=== PATIENT | male | born 1955 | race Hispanic/Latino ===

== ENCOUNTER 2018-09-09 07:56 | Day surgery (SDC) | payer OTHER ==
[2018-09-07 15:42] VITALS: BP 128/69
[2018-09-07 15:47] LABS: APPEARANCE,URINE Clear (CLEAR); BILIRUBIN,URINE Negative (NEGATIVE); COLOR,URINE Yellow (YELLOW); GLUCOSE, URINE (UA) >=1000 mg/dL (NEGATIVE); KETONES,URINE Trace mg/dL (NEGATIVE); LEUKOCYTE ESTERASE ,URINE Negative (NEGATIVE); NITRATE,URINE Negative (NEGATIVE); OCCULT BLOOD,URINE Negative (NEGATIVE); PROTEIN,URINE Negative (NEGATIVE)
[2018-09-07 15:48] LABS: BASOPHILS % (AUTO) 0.2 % (0.0-5.0); EOSINOPHILS % (AUTO) 1.7 % (0.0-8.0); HEMATOCRIT 38.9 % (42-54); LYMPHOCYTES % (AUTO) 32.1 % (21.0-51.0); MEAN CORPUSCULAR HEMOGLOBIN 29.1 pg (27.0-33.0); MEAN CORPUSCULAR HGB CONC 33.8 g/dL (32.0-36.0); MEAN CORPUSCULAR VOLUME 86.1 fL (79-99); MONOCYTES % (AUTO) 8.9 % (3.0-13.0); NEUTROPHILS % (AUTO) 57.1 % (40.0-77.0); PLATELET COUNT (AUTO) 270 K/uL (130-400); RED BLOOD CELL COUNT(AUTO) 4.52 MIL/uL (4.50-6.20); RED CELL DISTRIBUTION WIDTH 13.3 % (11.0-15.5); WHITE BLOOD COUNT (AUTO) 4.7 K/uL (4.8-10.8)
[2018-09-07 15:58] LABS: CREATININE 0.9 mg/dL (0.5-1.5); POTASSIUM 3.6 mmol/L (3.5-5.1)
[2018-09-07 16:09] LABS: BACTERIA,URINE Rare /HPF (None Seen); RBC,URINE 0-1 /HPF (0-1)
[2018-09-07 16:10] LABS: SQUAMOUS EPITHELIAL CELL,UR Rare /HPF (0-2)
[2018-09-09] VITALS (13 sets, daily range): BP systolic 100–137; BP diastolic 62–74
[~2018-09-09] VITALS: Ht 165.1 cm; Wt 74.9 kg
[~2018-09-09 07:56] MED LIST: DOXA8TAB81 PO; FENO48TA4 PO; GLIM2TAB3 PO; LACTATED RINGERS 1000ML 1,000 ML IV SCH; LOSA25TA16 PO; METF-446 PO; SIMV20TA6 PO
[2018-09-09] MEDS ORDERED: FENTANYL CITRATE PF 50 MCG/1 ML 2ML VIAL ONE (08:26)
[2018-09-09] MEDS ORDERED: PROPOFOL 10 MG/ML 20ML VIAL IV ONE (08:26)
[2018-09-09] MEDS ORDERED: ROCURONIUM 10MG/1ML SYR 10 MG/ML ML ONE (08:26)
[2018-09-09] MEDS ORDERED: LIDOCAINE PF 2% 5ML ABBOJECT ONE (08:26)
[2018-09-09] MEDS ORDERED: SUCCINYLCHOLINE CHLORIDE 20 MG/ML 10 ML VIAL ONE (08:26)
[2018-09-09] MEDS ORDERED: BUPIVACAINE/PF 0.25% 30ML VIAL IJ ONE (08:40)
[2018-09-09] MEDS ORDERED: SODIUM CHLORIDE 0.9% 1000ML 1,000 ML IV ONE (08:42)
[2018-09-09] MEDS ORDERED: ONDANSETRON HCL 4 MG/2 ML VIAL ONE (10:50)
[2018-09-09] MEDS ORDERED: PHENYLEPHRINE HCL 10 MG/ML 1ML VIAL IV ONE (10:50)
[2018-09-09] MEDS ORDERED: GLYCOPYRROLATE 1 MG/5 ML SYRINGE ONE (10:52)
[2018-09-09] MEDS ORDERED: NEOSTIGMINE 5MG/5ML SYR IV ONE (10:52)
[2018-09-09] MEDS ORDERED: MEPERIDINE-PF 25 MG/ML SYG ONE (11:23)
== END 2018-09-09 12:50 | disposition home or self-care (01) ==
LOC: DAH 07:56
PROVIDERS: ATTEND Surgery
DX: K40.90 Unilateral inguinal hernia, without obstruction or gangrene, not specified as recurrent (principal); E11.9 Type 2 diabetes mellitus without complications; E78.5 Hyperlipidemia, unspecified; I10 Essential (primary) hypertension; E66.3 Overweight; Z98.890 Other specified postprocedural states; Z90.49 Acquired absence of other specified parts of digestive tract; Z79.899 Other long term (current) drug therapy; Z79.84 Long term (current) use of oral hypoglycemic drugs; Z82.49 Family history of ischemic heart disease and other diseases of the circulatory system; Z83.3 Family history of diabetes mellitus
CPT/HCPCS: 36415; 49505; 80048; 81001; 82948 ×2; 85025; 93005; A4450; A4452; C1729; C1781; J0330; J2001; J2175; J2370; J2405; J2704; J2710; J3010; J3490 ×2; J7030

== ENCOUNTER 2020-03-08 06:00 | Day surgery (SDC) | payer MEDICARE, OTHER ==
[2020-03-05 14:54] LABS: BASOPHILS % (AUTO) 0.3 % (0.0-5.0); EOSINOPHILS % (AUTO) 1.5 % (0.0-8.0); HEMATOCRIT 40.4 % (42-54); LYMPHOCYTES % (AUTO) 32.8 % (21.0-51.0); MEAN CORPUSCULAR HEMOGLOBIN 28.1 pg (27.0-33.0); MEAN CORPUSCULAR HGB CONC 32.9 g/dL (32.0-36.0); MEAN CORPUSCULAR VOLUME 85.2 fL (79-99); MONOCYTES % (AUTO) 6.3 % (3.0-13.0); NEUTROPHILS % (AUTO) 58.8 % (40.0-77.0); PLATELET COUNT (AUTO) 237 K/uL (130-400); RED BLOOD CELL COUNT(AUTO) 4.74 MIL/uL (4.50-6.20); RED CELL DISTRIBUTION WIDTH 12.5 % (11.0-15.5)
[2020-03-05 15:22] LABS: INR 0.95 (0.85-1.15); PARTIAL THROMBOPLASTIN TIME 26.1 SEC (26.3-35.5); PROTHROMBIN TIME 10.3 SEC (9.6-11.6)
[2020-03-07 08:39] VITALS: BP 128/59
[2020-03-08] VITALS (20 sets, daily range): BP systolic 106–136; BP diastolic 58–81
[~2020-03-08] VITALS: Ht 165.1 cm; Wt 75.9 kg
[~2020-03-08 06:00] MED LIST changes: -FENO48TA4 PO; -GLIM2TAB3 PO; +GLIM2TAB30 PO; -LACTATED RINGERS 1000ML 1,000 ML IV SCH; +LORA10TA7 PO; -LOSA25TA16 PO; +LOSA25TA41 PO; +SIMV-43 PO; -SIMV20TA6 PO; +VITAMIN D3 PO
[2020-03-08] MEDS ORDERED: SUCCINYLCHOLINE CHLORIDE 20 MG/ML 10 ML VIAL ONE (07:27)
[2020-03-08] MEDS ORDERED: LIDOCAINE HCL MPF 1% 5ML VIAL ONE (07:27)
[2020-03-08] MEDS ORDERED: ROCURONIUM 10MG/1ML SYR 10 MG/ML ML ONE (07:28)
[2020-03-08] MEDS ORDERED: PROPOFOL 10 MG/ML 20ML VIAL IV ONE (07:28)
[2020-03-08] MEDS ORDERED: FENTANYL CITRATE PF 50 MCG/1 ML 2ML VIAL ONE (07:29)
[2020-03-08] MEDS ORDERED: SODIUM CHLORIDE 0.9% 1000ML 1,000 ML IV ONE (08:00)
[2020-03-08] MEDS: CEFAZOLIN SODIUM 1 GM VIAL IVP SCH ×2 (08:00→09:05)
--- NOTE | 2020-03-08 08:04 | NUR ---
RASH TO KNEES & LOWER EXTREMITIES
[2020-03-08] MEDS ORDERED: BUPIVACAINE/PF 0.25% 30ML VIAL IJ ONE (08:52)
[2020-03-08] MEDS ORDERED: BACITRACIN 28.4 GM OINT TP ONE (09:33)
[2020-03-08] MEDS ORDERED: GLYCOPYRROLATE 1 MG/5 ML SYRINGE ONE (09:42)
[2020-03-08] MEDS ORDERED: NEOSTIGMINE 5MG/5ML SYR IV ONE (09:42)
[2020-03-08] MEDS ORDERED: KETOROLAC TROMETHAMINE 30MG/ML ONE (09:43)
[2020-03-08] MEDS ORDERED: ACET1TAB12 PO (11:38)
== END 2020-03-08 12:30 | disposition home or self-care (01) ==
LOC: DAH 06:00
PROVIDERS: ATTEND Urology
DX: N47.1 Phimosis (principal); E11.9 Type 2 diabetes mellitus without complications; I10 Essential (primary) hypertension; M19.90 Unspecified osteoarthritis, unspecified site; Z88.8 Allergy status to other drugs, medicaments and biological substances; Z79.899 Other long term (current) drug therapy; Z98.890 Other specified postprocedural states; Z79.84 Long term (current) use of oral hypoglycemic drugs; Z82.49 Family history of ischemic heart disease and other diseases of the circulatory system
CPT/HCPCS: 36415; 54161; 80048; 82948 ×2; 85025; 85610; 85730; 93005; A4213; A4215; A4221; A4222; A4223; A4600; A4606; A4649; A4663; A4930; J0330; J0690; J1885; J2704; J2710; J3010; J3490 ×3; J7030

== ENCOUNTER 2022-08-14 12:26 | Emergency (ER) | payer OTHER ==
[~2022-08-14] VITALS: Ht 162.6 cm; Wt 68.0 kg
[2022-08-14 13:30] LABS: APPEARANCE,URINE CLEAR (CLEAR); BILIRUBIN,URINE NEGATIVE (NEGATIVE); COLOR,URINE LIGHT-YELLOW (YELLOW); GLUCOSE, URINE (UA) 150 mg/dL (NEGATIVE); KETONES,URINE NEGATIVE (NEGATIVE); LEUKOCYTE ESTERASE ,URINE NEGATIVE Leu/uL (NEGATIVE); NITRATE,URINE NEGATIVE (NEGATIVE); OCCULT BLOOD,URINE SMALL (NEGATIVE); PROTEIN,URINE NEGATIVE (NEGATIVE); UROBILINOGEN,URINE 0.2 mg/dL (0.2-1.0)
[2022-08-14 14:04] LABS: MUCUS,URINE RARE LPF (None Seen); SQUAMOUS EPITHELIAL CELL,UR RARE /HPF (0-2)
[2022-08-14] MEDS ORDERED: CEPH500B PO (16:31)
[2022-08-14] MEDS ORDERED: PRED5TAB44 PO (16:31)
[2022-08-14 16:49] VITALS: BP 128/66
== END 2022-08-14 16:50 | disposition home or self-care (01) ==
LOC: EDH 12:26
DX: K64.4 Residual hemorrhoidal skin tags (principal); R59.0 Localized enlarged lymph nodes; E11.9 Type 2 diabetes mellitus without complications; E78.00 Pure hypercholesterolemia, unspecified; I10 Essential (primary) hypertension; Z79.899 Other long term (current) drug therapy; Z79.84 Long term (current) use of oral hypoglycemic drugs
CPT/HCPCS: 76870; 81001

== ENCOUNTER → 2022-10-08 | Outpatient (CLI) | payer OTHER ==
[~2022-10-08] MED LIST changes: +CEPH500B PO; +PRED5TAB44 PO
[2022-10-08 12:53] LABS: CREATININE 0.7 mg/dL (0.5-1.5); POTASSIUM 3.9 mmol/L (3.5-5.1)
== END | disposition home or self-care (01) ==
LOC: LAB 11:40
PROVIDERS: ATTEND Family Medicine
DX: I10 Essential (primary) hypertension (principal)
CPT/HCPCS: 36415; 80048

== ENCOUNTER → 2025-10-03 | Outpatient (CLI) | payer OTHER ==
--- NOTE | 2025-10-03 13:49 | HMCIMG ---
EXAM: CR CHEST, 2 VIEWS CLINICAL HISTORY: Psoriasis, unspecified (Hx) / Psoriasis, unspecified. COMPARISON: None. TECHNIQUE: Frontal and lateral radiographs of the chest. FINDINGS: Lines/Devices: None. Lungs: Prominent bronchovascular markings in both lungs. There is no pleural effusion. There is no pneumothorax. Mediastinum and cardiovascular structures: The cardiac silhouette is not enlarged. The central airway and mediastinal contours are unremarkable. Bones and soft tissues: Incompletely visualized orthopedic hardware in the lower cervical vertebrae. Multilevel degenerative changes in the form of marginal osteophytes in the visualized spine. IMPRESSION: 1. No acute cardiopulmonary pathology. 2. Prominent bronchovascular markings in both lungs. 3. Multilevel degenerative changes with marginal osteophytes in the visualized spine. 4. Incompletely visualized lower cervical orthopedic hardware. /[place]
== END | disposition home or self-care (01) ==
LOC: RAH 08:44
PROVIDERS: ATTEND Dermatology
DX: L40.9 Psoriasis, unspecified (principal); M25.78 Osteophyte, vertebrae; M47.814 Spondylosis without myelopathy or radiculopathy, thoracic region
CPT/HCPCS: 71046